=== PATIENT | male | born 1995 | race Caucasian/White ===

== ENCOUNTER 2017-04-27 18:06 | Emergency (ER) | payer OTHER ==
[~2017-04-27] VITALS: Ht 188 cm; Wt 90.7 kg
[2017-04-27] MEDS ORDERED: Tetanus/Diptheria/Pertussis Vaccine 0.5ml Syr IM ONE (18:15)
--- NOTE | 2017-04-27 18:18 | Emergency Room Report ---
History of Present Illness General Chief Complaint: Laceration Source: Patient Present Illness HPI 22 YO Male presents to the ED c/o laceration to the left thumb, sustained at work when he was cutting using a knife. Pt. is right hand dominant. He denies taking blood thinning medications patient denies pain at this time. Pt does not know when his last tetanus vaccination was. Patient reports continued bleeding despite application of pressure and bandage. Denies numbness tingling or loss of sensation or gross motor movements of the extremities, incontinence of bowel or bladder. Denies CP, Palpitations, LOC, AMS, dizziness, Changes in Vision, Sensation, paresthesias, or a sudden severe headache. Allergies: Coded Allergies: No Known Allergies (Unverified , 04/27/17) Patient History Past Medical History: see triage record Past Surgical History: none Pertinent Family History: none Reviewed Nursing Documentation: PMH: Agreed, PSxH: Agreed Nursing Documentation-PMH Past Medical History: No Stated History Review of Systems All Other Systems: negative except mentioned in HPI Physical Exam Vital Signs Date Time Temp Pulse Resp B/P (MAP) Pulse Ox O2 Delivery O2 Flow Rate FiO2 04/27/17 18:10 97.9 81 14 144/89 97 Room Air Sp02 EP Interpretation: reviewed, normal General Appearance: no apparent distress, alert, GCS 15, non-toxic Head: normocephalic, atraumatic Eyes: bilateral eye normal inspection, bilateral eye PERRL ENT: hearing grossly normal, normal voice Neck: full range of motion Respiratory: lungs clear, normal breath sounds, speaking full sentences Cardiovascular #1: regular rate, rhythm Musculoskeletal: back normal, gait/station normal, normal range of motion, non- tender Neurologic: alert, oriented x3, responsive, motor strength/tone normal, sensory intact, speech normal Psychiatric: judgement/insight normal, memory normal, mood/affect normal Skin: normal color, no rash, warm/dry, well hydrated, laceration - 0.5 cm finger tip avulsion laceration of the left thumb, no nail involvement, no bone involvement, small arteriole bleed noted. Lymphatic: no adenopathy Procedures Laceration/Wound Repair Laceration/Wound Repair : Consent: Verbal Wound Location: upper extremity - left thumb Wound's Depth, Shape: superficial Wound Length (cm): 5 - .5 Wound Explored: clean Irrigated w/ Saline (ccs): 500 Sterile Dressing Applied?: Yes Splint Applied?: Yes Sling Applied?: No Patient Tolerated: Well Complications: None Medical Decision Making PA Attestation Dr. urrutia is my supervising Physician whom patient management has been discussed with. Diagnostic Impression: Primary Impression: Avulsion of finger tip Qualified Codes: S61.209A - Unspecified open wound of unspecified finger without damage to nail, initial encounter ER Course Pt. presents to the ED c/o laceration to the left thumb, sustained at work when he was cutting using a knife. Pt. is right hand dominant. Ddx considered but are not limited to laceration, tendon injury, cellulitis, amputation Vital signs: are WNL, pt. is afebrile H&PE are most consistent with: Avulsion laceration approx 0.5 cm in length ORDERS: none required at this time, the diagnosis is clinical ED INTERVENTIONS: -Tetanus vaccine was administered as pt. vaccination status was unknown. - The wound was copiously irrigated with normal saline, and explored for foreign body for which no FB was found. - pt. is anesthetized with 1%lidocaine w. epi. - Silver Nitrate Application for chemical cautery, performed, with good hemostasis, and pt. tolerated well. - Finger Splint applied by technical sourcing recruiter. Pt. remains neurovascularly intact. -Pressure dressing applied. by retail greeting card merchandiser. Discussed with patient: That we make every effort to approximate the laceration as best as we can so that scarring will be as cosmetically pleasing as possible with our limited cosmetic skill set in the Emergency dept. Regardless of our best efforts there will be scarring after laceration repair. The extent of scarring is unknown at this time. -D/w pt that this injury will require closure by secondary intent, and to follow up with a pcp. keep a close eye for infection, and to return promptly to the ED with worsening or new symptoms. DISCHARGE: At this time pt. is stable for d/c to home. Will provide printed patient care instructions, and any necessary prescriptions. Care plan and follow up instructions have been discussed with the patient prior to discharge. Last Vital Signs Date Time Temp Pulse Resp B/P (MAP) Pulse Ox O2 Delivery O2 Flow Rate FiO2 04/27/17 18:10 97.9 81 14 144/89 97 Room Air Disposition: HOME, SELF-CARE Condition: Stable Scripts Bacitracin/Polymyxin B Sulfate (BACITRACIN-POLYMYXIN OINTMENT) 28.35 Gm Oint...g. 1 APPLIC TP BID, #28.3 GM Prov: Sayda Carr 04/27/17 Cephalexin* (KEFLEX*) 500 Mg Capsule 500 MG ORAL EVERY 12 HOURS for 7 Days, #14 CAP 0 Refills Prov: Sayda Carr 04/27/17 Departure Forms: Return to Work Return to Work Date: Apr 29, 2017 Work Restrictions: No Heavy Lifting Other Restrictions: limited use of left hand, keep clean and dry, allow splint to be worn. Return to Full Activity: May 06, 2017 Patient Instructions: Nonsutured Laceration Care, Laceration Care, Adult Additional Instructions: Take medications as directed. Follow up with a Primary Care Provider in 3-5 days, even if your symptoms have resolved. --Please review list of primary care clinics, if you do not already have a primary care provider Return sooner to ED if new symptoms occur, or current symptoms become worse. - Please note that this Emergency Department Report was dictated using [employer] representative raw fibers technology software, occasionally this can lead to erroneous entry secondary to interpretation by the dictation equipment. Sayda Carr Apr 27, 2017 18:18
[2017-04-27 18:30] VITALS: BP 144/89
[2017-04-27] MEDS ORDERED: Silver Nitrate Stick TOPIC ONE (18:30)
[2017-04-27] MEDS ORDERED: CEPHALEXIN500 MG ORAL (18:58)
[2017-04-27] MEDS ORDERED: BACITRACIN-P28.35 GM TP (18:58)
[2017-04-27] MEDS ORDERED: Norco 5mg/325mg tab ORAL ONE (19:15)
[2017-04-27 19:30] VITALS: BP 144/89
== END 2017-04-27 19:32 | disposition home or self-care (01) ==
LOC: EMR 18:30
DX: S61.012A Laceration without foreign body of left thumb without damage to nail, initial encounter (principal); W26.0XXA Contact with knife, initial encounter; Y92.511 Restaurant or cafe as the place of occurrence of the external cause; Y99.0 Civilian activity done for income or pay; Z23 Encounter for immunization
CPT/HCPCS: 29130; 90471; 90715; 99284